=== PATIENT | female | born 1945 | race Caucasian/White ===

== ENCOUNTER 2018-05-12 13:00 | Inpatient (IN) | payer MEDICARE, BC ==
--- NOTE | 2018-05-04 14:21 | HP ---
HISTORY AND PHYSICAL: DATE OF ADMISSION/PROCEDURE: 05/12/18 PROVIDER: Dr. Brianne Knight.* (DICTATED BY WARNER SCHWAB) HISTORY OF PRESENT ILLNESS: Ms. Sanders is a 72-year-old female with over 6 months of severe left knee pain. She has found it to be difficult walking more than 1 block because of pain. Difficulty bending and squatting. She has failed antiinflammatories, physical therapy, and steroid injections in the past without relief of pain. She is elected to undergo a left total knee arthroplasty with Dr. Brianne Knight. PAST MEDICAL HISTORY: 1. Hypertension. 2. Hypercholesterolemia. 3. Osteoarthritis. 4. Hypothyroidism. PAST SURGICAL HISTORY: 1. Cholecystectomy in 1989. 2. Hernia repairs x2. 3. Brain abscess excised in 2002. 4. Right total knee arthroplasty. 5. Bunion surgery in 2012. MEDICATIONS: 1. Betamethasone valerate 0.1%. 2. Gabapentin 100 mg. 3. Tylenol Extra Strength 500/25. 4. Premarin 0.625. 5. Zovirax 5%. 6. Calcium 600 plus D. 7. Atorvastatin calcium 20 mg. 8. Amlodipine 10 mg. 9. Levothyroxine sodium 125 mcg. 10. Colestipol 1 g. ALLERGIES: 1. PENICILLIN causes hives. 2. DEMEROL causes vomiting. FAMILY HISTORY: Paternal, heart disease and hypertension and cancer. Maternal stroke. SOCIAL HISTORY: The patient lives with her . She is retired. Denies any tobacco or recreational drug use. Drinks 2 to 3 beers per week. Normally very active, right-hand dominant. REVIEW OF SYSTEMS: General: The patient denies any fevers, chills, or night sweats. No known anesthesia problems. HEENT: The patient denies any headaches , lightheadedness, or syncopal episodes. Cardiothoracic: The patient denies any chest pain, heart palpitations, or edema. Pulmonary: The patient denies shortness of breath with exertion, chronic cough, or COPD. GI: The patient denies any nausea, vomiting, diarrhea, or constipation. : The patient denies any nocturia, urinary frequency, or urinary urgency. MSK: The patient admits to left knee pain. The patient denies any chronic or intermittent back pain or fracture. Neuro: The patient denies any paresthesias, numbness, seizures, or stroke. Integument: The patient denies any abrasions, lesions, rashes, lumps, or open sores. PHYSICAL EXAMINATION GENERAL: The patient is alert and oriented x3. No acute distress. Appropriate mood and affect. HEENT: Normocephalic, atraumatic. Hearing and vision are grossly intact. PULMONARY: Lungs are clear to auscultation bilaterally with no wheezes, rales, or rhonchi. CARDIO: Regular rate and rhythm. Normal S1 and S2. No appreciable S3 or S4. No murmurs, rubs, or gallops. IMPRESSION: Left knee osteoarthritis, severe end-stage. PLAN: To the OR for a left total knee arthroplasty to be performed on 05/12/[address] Brianne Knight. The patient will follow up 10 to 14 days after for suture removal and followup. The risks, benefits, and complications were reviewed with the patient by Dr. Knight. Informed consent was obtained. WARNER SCHWAB [id number]/[facility] #: [id number] [facility]
--- NOTE | 2018-07-27 20:19 | HP ---
HISTORY AND PHYSICAL: DATE OF ADMISSION/SURGERY: 08/04/18 DATE OF OFFICE VISIT: 07/25/18 SURGEON: Brianne Knight MD * (DICTATED BY WARNER GOMEZ) PROCEDURE: Left total knee arthroplasty. CHIEF COMPLAINT: Left knee pain. HISTORY OF PRESENT ILLNESS: Ms. Sanders is a 73-year-old female with complaints of left knee pain. She has failed conservative treatment and elected to proceed with a left total knee arthroplasty. PAST MEDICAL HISTORY: Hypertension, hypothyroidism, and high cholesterol. PAST SURGICAL HISTORY: Right total knee arthroplasty, bunionectomy, hernia repair x2, cholecystectomy, and a brain abscess excision. CURRENT MEDICATIONS: 1. Betamethasone valerate 0.1% twice daily as needed. 2. Gabapentin 100 mg 3 times a day. 3. Extra Strength Tylenol. 4. Premarin. 5. Zovirax 5%. 6. Calcium with vitamin D. 7. Atorvastatin calcium 20 mg q.h.s. 8. Amlodipine 10 mg daily. 9. Levothyroxine 125 mcg daily. 10. Colestipol 1 g 3 tablets twice daily. ALLERGIES: To PENICILLIN and DEMEROL. FAMILY HISTORY: Heart disease, cancer, and stroke. SOCIAL HISTORY: She is a 73-year-old female. She lives with her . She does not smoke or use drugs. Uses occasional alcohol. REVIEW OF SYSTEMS: A complete 14-point review of systems was reviewed with the patient, positive for hypothyroidism. She denies a history of DVT, PE, hepatitis, HIV, or anesthesia problems. PHYSICAL EXAMINATION GENERAL: She is well developed, well nourished, in no acute distress. VITAL SIGNS: She stands 4 feet 11 inches tall, weighs 149 pounds. Her blood pressure is 128/86, heart rate is 80. HEENT: Normocephalic, atraumatic. NECK: Supple. No palpable lymph nodes. PULMONARY: The lungs are clear to auscultation bilaterally. CARDIO: Regular rate and rhythm. Strong S1, S2. ABDOMEN: Soft, nontender, and nondistended. NEUROLOGICAL: She is alert and oriented x3. MUSCULOSKELETAL: Left lower extremity: The skin is intact. There are no open wounds or abrasions. There is a hfol-yd-vqzbhuil joint effusion. She has some tenderness over the medial and lateral joint line. Range of motion is 5 to 120 degrees with a 15-degree valgus deformity. She has a 2+ dorsalis pedis pulse and intact sensation. Her lower extremity muscle group strengths are intact at 5/5. ASSESSMENT AND PLAN: Ms. Sanders is a 73-year-old female with end-stage osteoarthritis of the left knee. She has failed conservative treatment and elected to proceed with a left total knee arthroplasty, which is scheduled for 08/04/18. Dr. Knight discussed the risks and benefits of the surgery at today's visit and all of her questions were answered. She will follow up with Dr. Knight 2 weeks after the surgery. WARNER GOMEZ [id number]/[facility] #: [id number] [facility]
[2018-08-08] MEDS ORDERED: Ondansetron TAB* 4 MG PO ONE (10:57)
[2018-08-08] MEDS ORDERED: Buffered Lidocaine 0.9% SYRIN* 5 ML/SYR SYRINGE INTRADERM ONE (10:57)
[2018-08-09] MEDS ORDERED: Tranexamic Acid 1,000 MG in NS 0.9% 50 ML* (outpatient use) IV SCH ×2
[2018-08-09] MEDS ORDERED: PROCHLORPERAZINE INJ 5 MG/ML 2 ML VIAL IV PRN (05:51)
[2018-08-09] MEDS ORDERED: Morphine VIAL* 4 MG/ML VIAL (1 ml vial) IV PRN ×2 (05:51→10:56)
[2018-08-09] MEDS ORDERED: oxyCODONE/Acetamin 5/325 MG* TAB PO PRN ×2 (05:51→10:56)
[2018-08-09] MEDS ORDERED: fentaNYL* 50 MCG/ML 2 ML VIAL (100 MCG VIAL) IV PRN (05:51)
[2018-08-09] MEDS ORDERED: DiMENhydriNATE IV* 50 MG/ML VIAL IV PUSH PRN (05:51)
[2018-08-09] MEDS ORDERED: Naloxone* 0.4 MG/ML 1 ML VIAL IV PRN (05:51)
[2018-08-09] MEDS ORDERED: Gabapentin CAP(*) 300 MG PO ONE (06:00)
[2018-08-09] MEDS ORDERED: Famotidine IV* 10 MG/ML 2 ML (20 mg) IV ONE (06:00)
[2018-08-09] MEDS ORDERED: Dexamethasone TAB* 4 MG PO ONE (06:00)
[2018-08-09] MEDS ORDERED: Ondansetron ODT TAB* 4 MG ONE (06:58)
[2018-08-09] MEDS ORDERED: Famotidine IV* 10 MG/ML 2 ML (20 mg) ONE (06:58)
[2018-08-09] MEDS ORDERED: Clindamycin 900 MG/D5W BAG(*) 900 MG/50 ML BAG IVPB ONE (06:58)
[2018-08-09] MEDS ORDERED: Dexamethasone TAB* 4 MG ONE (06:58)
[2018-08-09] MEDS ORDERED: Bupivacaine 0.5% SDV PF* 30ML VIAL ONE ×2 (07:06→09:44)
[2018-08-09] MEDS ORDERED: Buffered Lidocaine 0.9% SYRIN* 5 ML/SYR SYRINGE ONE (07:09)
[2018-08-09] MEDS ORDERED: fentaNYL* 50 MCG/ML 2 ML VIAL (100 MCG VIAL) ONE ×2 (07:23→12:32)
[2018-08-09] MEDS ORDERED: Midazolam* 1 MG/ML 5 ML VIAL (5 MG) ONE (07:23)
[2018-08-09] MEDS ORDERED: KETAMINE HCL* 50 MG/ML 10 ML VIAL ONE (07:23)
[2018-08-09] MEDS ORDERED: Atracurium* 10 MG/ML 10 ML VIAL ONE (07:24)
[2018-08-09] MEDS ORDERED: Gabapentin CAP(*) 300 MG ONE (07:26)
[2018-08-09] MEDS ORDERED: Ketorolac INJ* 30 MG/ML 1 ML VIAL ONE ×2 (09:44→10:48)
[2018-08-09] MEDS ORDERED: Phenylephrine INJ* 10 MG/ML 1 ML VIAL (10 MG) ONE (09:44)
[2018-08-09] MEDS ORDERED: Propofol* 10 MG/ML 20 ML BTL IV PUSH ONE (09:44)
[2018-08-09] MEDS ORDERED: Lidocaine 2% PF * 5 ML VIAL ONE (09:44)
[2018-08-09] MEDS ORDERED: PROCHLORPERAZINE INJ 5 MG/ML 2 ML VIAL ONE ×2 (09:44→10:48)
[2018-08-09] MEDS ORDERED: Morphine VIAL* 10 MG/ML 1 ML VIAL ONE (09:45)
[2018-08-09] MEDS ORDERED: Cyclobenzaprine TAB* 10 MG PO PRN (10:56)
[2018-08-09] MEDS ORDERED: Magnesium Hydroxide LIQ* 30 ML UDC PO PRN (10:56)
[2018-08-09] MEDS ORDERED: Acetaminophen TAB* 325 MG PO PRN (10:56)
[2018-08-09] MEDS ORDERED: Bisacodyl SUPP* 10 MG SUPP PR PRN (10:56)
[2018-08-09] MEDS ORDERED: Ondansetron INJ* 2 MG/ML VIAL IV PRN (10:56)
[2018-08-09] MEDS ORDERED: diPHENhydraMINE IV* 50 MG/ML 1 ml VIAL (BENADRYL) IV PRN (10:56)
--- NOTE | 2018-08-09 11:36 | RAD ---
HISTORY: S/P LTKA COMPARISONS: April 11, 2018 VIEWS: 2 , Frontal and lateral views of the left knee FINDINGS: BONE DENSITY: Normal. BONES: The patient is status post left knee arthroplasty. There is no hardware failure or osteolysis. JOINTS: The patient is status post left knee arthroplasty. ALIGNMENT: There is no dislocation. SOFT TISSUES: Unremarkable. OTHER FINDINGS: None. IMPRESSION: STATUS POST LEFT KNEE ARTHROPLASTY
--- NOTE | 2018-08-09 11:40 | CONSULT ---
Subjective Date of Service: 08/09/18 Interval History: Medical consult for medical co-management of ortho patient, by request of Dr. Knight. Pt is a 73 year old female with a PMH HTN, HLD and Hypothyroidism admitted for elective L total knee arthroplasty after failing medical management. Pt was observed in the PACU after her procedure. On exam, pt was in no acute distress. She was still lethargic from anesthesia, but was arousable and able to answer questions. Pain is well controlled on current regimen. She denied chest pain, shortness of breath, N/V/D, headache, dizziness, numbness or tingling in lower extremities. Review of Systems - Measurements Intake and Output: Intake and Output Last 24 Hours 08/07/18 08/08/18 08/09/18 08/10/18 06:59 06:59 06:59 06:59 Intake Total 2100 Balance 2100 Intake: IV Fluids 2100 LR 2100 - Review of Systems General Comments: ROS negative. Pt has no complaints, but is in a post-operative state Objective Active Medications: Acetaminophen (Tylenol Tab*) 650 mg PO Q8H PRN PRN Reason: PAIN OR TEMPERATURE Bisacodyl (Dulcolax Supp*) 10 mg CO DAILY PRN PRN Reason: constipation Cyclobenzaprine HCl (Flexeril Tab*) 5 mg PO TID PRN PRN Reason: SPASMS Dexamethasone (Decadron Tab*) 8 mg PO ONCE ONE Stop: 08/09/18 06:01 Last Admin: 08/09/18 07:23 Dose: 8 mg Dimenhydrinate (Dramamine Iv*) 12.5 mg IV PUSH ONCE PRN PRN Reason: NAUSEA/VOMITING Diphenhydramine HCl (Benadryl Iv*) 25 mg IV Q6H PRN PRN Reason: itching Docusate Sodium (Colace Cap*) 100 mg PO BID [place] Enoxaparin Sodium (Lovenox(*)) 40 mg SUBCUT Q24H [place] Famotidine (Pepcid Iv*) 20 mg IV ONCE ONE Stop: 08/09/18 06:01 Last Admin: 08/09/18 07:23 Dose: 20 mg Fentanyl Citrate (Fentanyl*) 25 mcg IV Q5M PRN PRN Reason: PAIN - MODERATE Gabapentin (Neurontin Cap(*)) 300 mg PO ONCE ONE Stop: 08/09/18 06:01 Last Admin: 08/09/18 07:27 Dose: 300 mg Lactated Ringer's (Lactated Ringers 1000 Ml Bag*) 1,000 mls @ 125 mls/hr IV PER RATE [facility] Last Admin: 08/09/18 07:23 Dose: 125 mls/hr Tranexamic Acid 1,000 mg/ (Sodium Chloride) 60 mls @ 120 mls/hr IV ONCE Stop: 08/09/18 23:59 Clindamycin HCl/Dextrose (Cleocin 600 Mg Ivpremix(*) Sdv) 600 mg in 50 mls @ 100 mls/hr IV Q8H [facility] Stop: 08/10/18 03:29 Lactated Ringer's (Lactated Ringers 1000 Ml Bag*) 1,000 mls @ 100 mls/hr IV PER RATE [facility] Lactulose (Lactulose*) 30 ml PO Q6H PRN PRN Reason: constipation Lidocaine/Sodium Bicarbonate (Buffered Lidocaine 0.9% Syrin*) 0.2 ml INTRADERM ONCE ONE Stop: 08/08/18 10:58 Last Admin: 08/09/18 07:22 Dose: 0.2 ml Magnesium Hydroxide (Milk Of Magnesia Liq*) 30 ml PO BID [facility] Magnesium Hydroxide (Milk Of Magnesia Liq*) 30 ml PO Q6H PRN PRN Reason: constipation Morphine Sulfate (Morphine Vial*) 1 mg IV Q5M PRN PRN Reason: PAIN Morphine Sulfate (Morphine Inj ((Syringe))*) 2 mg IV Q2H PRN PRN Reason: PAIN - SEVERE Multivitamins (Theragran Tab*) 1 tab PO DAILY [facility] Naloxone HCl (Narcan*) 0.08 mg IV Q2M PRN PRN Reason: severe induced resp depression Ondansetron HCl (Zofran Tab*) 4 mg PO ONCE ONE Stop: 08/08/18 10:58 Last Admin: 08/09/18 07:24 Dose: 4 mg Ondansetron HCl (Zofran Inj*) 4 mg IV Q6H PRN PRN Reason: nausea Oxycodone HCl (Roxycodone Tab*) 10 mg PO Q4H PRN PRN Reason: PAIN - SEVERE Oxycodone/Acetaminophen (Percocet 5/325 Tab*) 1 tab PO ONCE PRN PRN Reason: PAIN - MODERATE Oxycodone/Acetaminophen (Percocet 5/325 Tab*) 1 tab PO Q4H PRN PRN Reason: PAIN Oxycodone/Acetaminophen (Percocet 5/325 Tab*) 2 tab PO Q4H PRN PRN Reason: PAIN Prochlorperazine Edisylate (Compazine Inj*) 2.5 mg IV ONCE PRN PRN Reason: NAUSEA/VOMITING Warfarin Sodium (Coumadin Tab(*)) 6 mg PO ONCE@1700 ONE; Protocol Stop: 08/09/18 17:01 Vital Signs - 8 hr 08/09/18 08/09/18 08/09/18 10:57 10:58 11:00 Temperature 99.0 F Pulse Rate 103 98 103 Respiratory 17 18 Rate Blood Pressure 118/75 112/65 (mmHg) O2 Sat by Pulse 92 93 91 Oximetry 08/09/18 08/09/18 08/09/18 11:01 11:05 11:10 Temperature Pulse Rate 105 96 106 Respiratory 23 18 18 Rate Blood Pressure 103/66 108/66 (mmHg) O2 Sat by Pulse 93 97 95 Oximetry 08/09/18 08/09/18 11:15 11:30 Temperature Pulse Rate 107 106 Respiratory 20 25 Rate Blood Pressure 110/63 110/69 (mmHg) O2 Sat by Pulse 93 91 Oximetry Oxygen Devices in Use Now: Nasal Cannula Eyes: No Scleral Icterus, PERRLA Ears/Nose/Mouth/Throat: NL Teeth, Lips, Gums, Clear Oropharnyx, Mucous Membranes Moist Neck: NL Appearance and Movements; NL JVP Respiratory: Symmetrical Chest Expansion and Respiratory Effort, Clear to Auscultation Cardiovascular: No Edema, - - RRR. 2/6 systolic murmur. Abdominal: NL Sounds; No Tenderness; No Distention Extremities: No Edema, No Clubbing, Cyanosis Skin: No Rash or Ulcers, No Nodules or Sclerosis Neurological: NL Sensation, NL Muscle Strength and Tone, - - Answers questions appropriately, but is lethargic from anesthesia. Able to dorsiflex and plantarflex Assessment/Plan - Billing Plan By Medical Problem: 1. S/p left total knee arthroplasty - plan per ortho, primary team. Anticoagualtion with lovenox bridge to coumadin. Will trend H/H. Will be evaluated by PT. 2. HTN - Pt SBP 110s today. Will hold home amlodipine and re-evaluate tomorrow 3. Hypothyroid - Continue home synthroid 4. HLD - Continue home atorvastatin VTE PPX: cont lovenox per ortho Diet: Regular diet as tolerated Code Status: Full code Admission Status and Rationale: Remain inpatient. Disposition per primary team , orthopedics
[2018-08-09] MEDS: Gabapentin CAP(*) 100 MG PO SCH ×2 (15:48→20:06)
[2018-08-09] MEDS: oxyCODONE/Acetamin 5/325 MG* TAB PO PRN ×2 (15:49→20:06)
[2018-08-09] MEDS: Clindamycin 600 MG IVPREMIX(* 600 MG/50 ML SDV IV SCH ×2 (15:49→22:42)
--- NOTE | 2018-08-09 16:42 | PN ---
Progress Note - Progress Note Date of Service: 08/09/18 Note: patient resting comfortably in bed. pain well controlled denies SIB/calf pain. able to dorsi flex/plantar flex, 2+ DP pulse,intact sensation
[2018-08-09] MEDS ORDERED: Warfarin TAB(*) 6 MG PO ONE (17:00)
[2018-08-09] MEDS ORDERED: Atorvastatin* 20 MG TAB PO SCH (18:00)
[2018-08-09] MEDS: oxyCODONE TAB* 5 MG TAB PO PRN ×2 (18:30→22:46)
--- NOTE | 2018-08-09 19:55 | PN ---
Hospitalist Progress Note Date of Service: 08/09/18 HOSPITALIST ADDENDUM Case reviewed and d/w [place] SUPERVISOR OF [employer]EARCH. Mrs Sanders is a 73yo F with PMH of HTN, HLD, hypothyroidism, admitted for elective left TKA. I'm in agreement with current management.
[2018-08-09] MEDS: Docusate CAP* 100 MG PO SCH (20:06)
[2018-08-09] MEDS: Magnesium Hydroxide LIQ* 30 ML UDC PO SCH (20:08)
[2018-08-10] MEDS: oxyCODONE/Acetamin 5/325 MG* TAB PO PRN ×3 (03:54→13:05)
[2018-08-10 05:53] LABS: Hematocrit 31 % (35-47); Hemoglobin 10.5 g/dl (12.0-16.0); Mean Platelet Volume 8.8 um3 (7.4-10.4); Platelet Count 134 10^3/ul (150-450)
[2018-08-10 05:57] LABS: INR 1.02 (0.77-1.02)
[2018-08-10 06:19] LABS: EGFR Non-African American 102.5 (>60)
[2018-08-10] MEDS: Clindamycin 600 MG IVPREMIX(* 600 MG/50 ML SDV IV SCH (06:26)
[2018-08-10] MEDS ORDERED: NS 0.9% 1000 ML* 1,000 ML IV ONE (07:34)
[2018-08-10] MEDS: Docusate CAP* 100 MG PO SCH (08:16)
[2018-08-10] MEDS: Gabapentin CAP(*) 100 MG PO SCH ×2 (08:16→14:56)
[2018-08-10] MEDS: Magnesium Hydroxide LIQ* 30 ML UDC PO SCH (08:16)
[2018-08-10] MEDS ORDERED: Levothyroxine TAB* 125 MCG TAB PO SCH (09:00)
[2018-08-10] MEDS ORDERED: Vitamin THERAPEUTIC TAB PO SCH (09:00)
--- NOTE | 2018-08-10 09:28 | OP ---
DATE OF OPERATION: 08/09/18 - ROOM #341 DATE OF : 49 SURGEON: Brianne Knight MD BATHROOM TILING PROFESSIONAL: WARNER Ojeda. Mr. Peoples did help throughout the procedure with preparation of the leg, wound retraction, manipulation of the knee, and wound closure. ANESTHESIOLOGIST: Dr. Pratt. ANESTHESIA: Spinal. PRE-OP DIAGNOSIS: Severe end-stage degenerative osteoarthritis of the left knee joint with valgus deformity. POST-OP DIAGNOSIS: Severe end-stage degenerative osteoarthritis of the left knee joint with valgus deformity. OPERATIVE PROCEDURE: Left total knee arthroplasty. TOURNIQUET TIME: 44 minutes. COMPLICATIONS: None. ESTIMATED BLOOD LOSS: 200 cc. SPECIMENS: Bone and cartilage from the left knee joint sent to Pathology. HARDWARE USED: This is cemented [employer] total knee arthroplasty hardware. Two packages of Simplex bone cement. For the femur, a left size 4 posterior stabilized narrow femoral component. For the tibia, a left size 3 Kaya II tibial base plate. For the insert, a 9-mm posterior stabilized articular insert size 3-4, and for the patella, a 32-mm 3 peg all-poly patella with 7.5 thickness. INDICATIONS: Ms. Sanders is a 73-year-old female with years of increasingly severe left knee pain. She failed conservative treatment with anti- inflammatories, pain medications, intraarticular injections, and physical therapy. Due to continued pain and decreased quality of life, she elected to undergo left total knee arthroplasty. Radiographs showed vetb-bb-[id number] arthritis. She did have significant valgus deformity of 12 degrees at least. Informed consent was obtained from the patient. She understood the risks of surgery included, but were not limited to, bleeding, infection, damage to nearby structures, continued pain, need for further surgery, intraoperative fracture, nerve palsy, hardware failure or loosening, knee stiffness, loss of motion, stroke, heart attack, blood clot, and . She wished to proceed. INTRAOPERATIVE FINDINGS: Intraoperatively, the patient was noted to have 12- degree valgus deformity. She had full thickness loss of cartilage in the lateral and patellofemoral compartments. She was noted to have significant osteopenia throughout the procedure. DESCRIPTION OF PROCEDURE: Ms. Sanders was identified in the preanesthesia unit. Her left lower extremity was marked as the correct operative site. Informed consent was signed and placed in the chart. The patient was taken to the operating room and placed under spinal anesthesia. A Hanks catheter was placed. Tourniquet was placed on the left thigh. Left lower extremity was prepped and draped in the usual sterile fashion. Preop time-out was made to correctly identify the patient, side and site. Appropriate perioperative antibiotics were given within 1 hour of incision. Tourniquet was inflated and total tourniquet time for this procedure was 44 minutes. A midline incision was made with a 10 blade and carried down to the extensor mechanism. A new 10 blade was used to make a standard medial parapatellar arthrotomy. The patella was subluxed laterally. Electrocautery was used to subperiosteally elevate soft tissue along the superomedial tibia to the mid sagittal plane. The knee was flexed up. The anterior horn of the lateral meniscus and ACL were sharply released. A drill was used to enter the distal femur. Intramedullary distal femoral cutting guide was pinned on the distal femur. Oscillating saw was used to make the distal femoral cut. Lateral femoral hypoplasia . Next, the external rotation guide was pinned on the distal femur. Distal femur was sized to a size 4. Size 4 multi-cutting jig was pinned on the distal femur. Oscillating saw was used to make the appropriate chamfer cuts. The PCL was completely released. The tibia was subluxed anteriorly. Extramedullary tibial cutting guide was pinned on the proximal tibia. Oscillating saw was used to make a cut at the proximal tibia perpendicular to the mechanical axis of the tibia. Tibial bone was carefully removed. The knee was brought out into full extension. The spacer block had excellent fit with the knee in full extension. There was good medial and lateral ligamentous balancing. Flexion and extension gaps were well balanced. The knee was flexed up. The lamina stabber was placed both medially and laterally. Any remaining meniscus was carefully removed using electrocautery. Curved osteotome was used to remove any posterior osteophytes. The tibial tray and drop harvinder were placed and once again confirmed a satisfactory tibial cut. A size 4 left narrow femoral trial was impacted on to the distal femur. The box for the posterior stabilized implant was prepared using a reamer and box cut osteotome. Size 3 tibial tray trial with a 9-mm insert trial was placed and the knee was taken through range of motion. The knee had full extension to 130 degrees of flexion. There was satisfactory patellofemoral tracking. The patella was everted. 7 mm of the patellar bone and cartilage were carefully removed using an oscillating saw. The patella was sized to a size 32. Three peg holes were drilled through the size 32 guide. 32 patella with 7.5 thickness was placed. The knee was taken through a range of motion and there was satisfactory patellofemoral tracking. All trials were carefully removed. Tibia was subluxed anteriorly and sized to a size 3. Proximal tibia was prepared using a size 3 keel punch. All bony cut surfaces were copiously irrigated with sterile saline and dried. Final hardware was cemented into place starting with the tibia followed by the femur and last the patella. A 9-mm insert trial was placed while the knee was brought out into full extension. Tourniquet was turned down at 44 minutes. Electro-cautery was used to obtain meticulous hemostasis. The knee was copiously irrigated with sterile saline. Once the cement had fully cured, the insert trial was removed. Any excess cement was removed from around the capsule and hardware. Final insert chosen was a 9-mm posterior stabilized articular insert, size 3-4. This was locked into position on the tibial tray. Stability of the insert was checked and rechecked and noted to be stable. The extensor mechanism was closed using interrupted #1 Vicryl. The rest of the incision was closed in a layered fashion using 0 and 2-0 Vicryl. Skin was closed using running 3-0 nylon suture. Sterile Xeroform, 4x4's, and Webril were used to cover the incision. Portillo wrap and cold pack were placed over this. The patient's anesthesia was reversed without difficulty. She was taken to the PACU in stable condition. Intended weightbearing will be weightbearing as tolerated. Intended DVT prophylaxis will be Coumadin with a Lovenox bridge. [id number]/[facility] #: [id number] [facility]
--- NOTE | 2018-08-10 09:58 | PN ---
Progress Note - Progress Note Date of Service: 08/10/18 SOAP: Subjective: POD #1 Left TKA. Doing very well. Pain well controlled, able to ambulate with rolling walker. Denies CP/SOB, f/c, n/v. Objective: Vitals: Temp Pulse Resp BP Pulse Ox 98.5 F 76 18 97/53 94 08/10/18 07:10 08/10/18 07:10 08/10/18 08:16 08/10/18 07:10 08/10/18 08:00 Gen: A&Ox3, NAD at rest LLE: Dressing C/D/I, calf soft/NT. +f/e at ankle and MTPs Labs: Laboratory Results - last 24 hr 08/10/08/10/18 08/10/18 05:17 05:17 05:17 Hgb 10.5 L Hct 31 L Plt Count 134 L MPV 8.8 INR (Anticoag Therapy) 1.02 Sodium 135 Potassium 4.3 Chloride 104 Carbon Dioxide 25 Anion Gap 6 BUN 10 Creatinine 0.58 Est GFR ( Amer) 124.0 Est GFR (Non-Af Amer) 102.5 BUN/Creatinine Ratio 17.2 Glucose 134 H Calcium 8.9 Assessment: POD #1 Left TKA Plan: Probable d/c home today Pt hypotensive but received fluid bolus and asymptomatic INR 1.02, Coumadin 6mg tonight F/u with Dr. Knight 10-14 days post op
[2018-08-10] MEDS ORDERED: Enoxaparin(*) 40 MG/0.4 ML SYR SUBCUT SCH (12:00)
[2018-08-10 16:26] VITALS: BP 103/47
== END 2018-08-10 16:35 | disposition home or self-care (01) | DRG 470 ==
LOC: AA 08-09 06:11 → SSU 08-09 13:50
PROVIDERS: ADMIT Orthopaedic Surgery Adult Reconstructive Orthopaedic Surgery; ATTEND Orthopaedic Surgery Adult Reconstructive Orthopaedic Surgery
PROC: 0SRD0J9 Replacement of Left Knee Joint with Synthetic Substitute, Cemented, Open Approach (ICD-10-PCS; principal; 2018-08-09 08:00)
DX: M17.12 Unilateral primary osteoarthritis, left knee (principal); F33.9 Major depressive disorder, recurrent, unspecified; I10 Essential (primary) hypertension; E03.9 Hypothyroidism, unspecified; Z96.651 Presence of right artificial knee joint; M25.462 Effusion, left knee; M21.062 Valgus deformity, not elsewhere classified, left knee; M81.0 Age-related osteoporosis without current pathological fracture; E78.2 Mixed hyperlipidemia; M85.862 Other specified disorders of bone density and structure, left lower leg; M25.762 Osteophyte, left knee; I95.9 Hypotension, unspecified; Z90.49 Acquired absence of other specified parts of digestive tract; Z88.5 Allergy status to narcotic agent; Z88.0 Allergy status to penicillin; Z82.3 Family history of stroke; Z80.9 Family history of malignant neoplasm, unspecified; Z82.49 Family history of ischemic heart disease and other diseases of the circulatory system; Z72.89 Other problems related to lifestyle; Z87.891 Personal history of nicotine dependence
CPT/HCPCS: 36415; 80048; 85014; 85018; 85049; 85610; 86850; 86900; 86901; A9270-GY; G8978-GP-CL; G8979-GP-CI; G8987-GO-CJ; G8988-GO-CJ; G8989-GO-CJ; J0780; J1650; J1885; J2250; J2270; J2704; J3010; J8540